=== PATIENT | male | born 1965 | race Caucasian/White ===

== ENCOUNTER → 2020-08-11 04:00 | Outpatient (CLI) | payer BC, SELFPAY ==
[2020-08-11 20:06] LABS: SARS-CoV-2 RNA PCR Negative
== END ==
PROVIDERS: PCP Internal Medicine; Visit Provider Internal Medicine Gastroenterology
DX: Z01.812 Encounter for preprocedural laboratory examination (principal); Z20.822 Contact with and (suspected) exposure to COVID-19
CPT/HCPCS: C9803; U0003; U0005

== ENCOUNTER 2020-08-14 01:58 | Day surgery (SDC) | payer BC, SELFPAY ==
[2020-08-14] MEDS: LACTATED RINGERS 1,000 ML 150 ML IV CONT (11:41)
[2020-08-14 11:48] VITALS: BP 136/89; PULSE 107; RESP 20; TEMP 36.4; O2SAT 97
[2020-08-14 12:05] VITALS: BMI 42.5
--- NOTE | 2020-08-14 12:10 | P.PNAN_ITS ---
Anes - Initial Pre Proc Eval Procedure: Operation Date: 08/14/20 12:30 Proposed Procedures p Screening Colonoscopy - Rom Fuentes MD Date/Time: 08/14/20 12:10 Surgeon: Rom Fuentes MD Pre Op Diagnosis: neoplasm screening Patient Data Age: 54 Gender: M Height: 5 ft 11 in Weight: 138.2 kg Last Vital Signs Temp 97.6 F 08/14/20 11:48 Pulse 107 H 08/14/20 11:48 Resp 20 08/14/20 11:48 BP 136/89 08/14/20 11:48 Pulse Ox 97 08/14/20 11:48 Allergies Allergy/AdvReac Type Severity Reaction Status Date / Time amlodipine Allergy Intermediate Rash Verified 08/14/20 11:43 cephalexin Allergy Intermediate Rash Verified 08/14/20 11:43 Home Medications Medication Instructions Recorded Confirmed Type needle (disp) 20 G 20 gauge x 1 #12 each 05/29/19 08/14/20 Rx 1/2 syringe with needle 3 mL 25 x 5/8 #12 each 05/29/19 08/14/20 Rx hydrochlorothiazide 25 mg tablet 25 mg PO DAILY #90 tablet 01/01/20 08/14/20 Rx blood sugar diagnostic #100 ea 01/07/20 08/14/20 Rx simvastatin 20 mg tablet 20 mg PO DAILY #90 tablet 04/20/20 08/14/20 Rx testosterone cypionate 200 mg/mL 200 mg IM WEEKLY PRN #5 ml 07/14/20 08/14/20 Rx intramuscular oil Patient hx anesthesia problems: none Family hx anesthesia problems: none [facility] Past Medical History Medical History (Updated 08/14/20 @ 12:10 by Adiel Moseley MD) Hyperlipidemia Hypertension MANJULA (obstructive sleep apnea) Social History Social History Smoking status: Current every day smoker Tobacco type: cigarettes Alcohol intake: former Substance use: never Substance use type: does not use Gender identity (if verbalized by the patient): Male Spiritual care concerns: No Anes - Eval Final PreProcedure Day of Procedure 08/14/20 12:10 Patient weight: morbidly obese Heart: regular rate and rhythm Lungs: clear to auscultation Airway: Mallampati scale class II Neurological: alert and oriented Last oral intake: >/= 8 hours ASA classification: III Emergent: no Anesthetic plan: proceed Anesthesia type and monitoring: general GIVS and standard monitoring Informed Consent: The patient's anesthetic plan and its attendant risks and benefits were discussed with the patient/family/POA. Questions were solicited and answers provided to the satisfaction of the patient/family/POA.
--- NOTE | 2020-08-14 12:15 | PM.HPGS ---
History of Present Illness History of Present Illness Consent: Risks, benefits, and alternatives have been discussed and questions answered. Patient agrees to proceed with procedure. Chief complaint: neoplasm screening Narrative: Wild Weinberg is a 54 year old male here for first screening colonoscopy Review of Systems Constitutional: Constitutional: Denies headache(s) and Denies weakness Eyes: Eyes: Denies blurry vision ENT: Reports Normal hearing present, Denies headache(s) and Denies neck pain Cardiovascular: Cardiovascular: Denies chest pain and Denies dyspnea Respiratory: Respiratory: Denies dyspnea Gastrointestinal: Gastrointestinal: Reports no additional gastrointestinal complaints Genitourinary: Genitourinary: Denies dysuria Musculoskeletal: Musculoskeletal: Denies neck pain Integumentary/Breasts: Skin/Breast: Denies dry skin Neurologic: Reports Normal hearing present, Denies headache(s) and Denies weakness Psychiatric: Psychiatric: Denies anxiety Endocrine: Endocrine: Denies change in body appearance Hematologic/Lymphatic: Hematologic/Lymphatic: Denies easy bleeding Allergic/Immunologic: Allergic/Immunologic: Denies urticaria PMF Past Medical History Medical History (Updated 08/14/20 @ 12:15 by Rom Fuentes MD) Colon cancer screening Hyperlipidemia Hypertension MANJULA (obstructive sleep apnea) Social History Social History Smoking status: Current every day smoker Tobacco type: cigarettes Alcohol intake: former Substance use: never Substance use type: does not use Gender identity (if verbalized by the patient): Male Spiritual care concerns: No Meds Home Medications and Allergies Home Medications Medication Instructions Recorded Confirmed Type needle (disp) 20 G 20 gauge x 1 #12 each 05/29/19 08/14/20 Rx 1/2 syringe with needle 3 mL 25 x 5/8 #12 each 05/29/19 08/14/20 Rx hydrochlorothiazide 25 mg tablet 25 mg PO DAILY #90 tablet 01/01/20 08/14/20 Rx blood sugar diagnostic #100 ea 01/07/20 08/14/20 Rx simvastatin 20 mg tablet 20 mg PO DAILY #90 tablet 04/20/20 08/14/20 Rx testosterone cypionate 200 mg/mL 200 mg IM WEEKLY PRN #5 ml 07/14/20 08/14/20 Rx intramuscular oil Allergies Allergy/AdvReac Type Severity Reaction Status Date / Time amlodipine Allergy Intermediate Rash Verified 08/14/20 11:43 cephalexin Allergy Intermediate Rash Verified 08/14/20 11:43 Vital Signs Vital Signs - 24 hr 08/14/20 11:48 Temperature 97.6 F Pulse Rate 107 H Respiratory Rate 20 Blood Pressure 136/89 Pulse Oximetry 97 Exam Const: General: comfortable and no acute distress HENMT: General nose exam: Normal nares present Eyes: General: appearance normal, both eyes and all related structures Neck: Neck: no JVD Resp: Auscultation: clear to auscultation bilaterally Cardio: Rate: regular rate Rhythm: regular rhythm GI: Inspection: non-distended GI Palp: Yes Soft to palpation Skin: General skin exam: normal color Neuro: General: gait normal Speech: normal speech Extrem: General: normal to inspection Psych: Mental Status: mental status grossly normal Assessment and Plan Assessment and plan (1) Colon cancer screening: Code(s): Z12.11 - Encounter for screening for malignant neoplasm of colon Status: Acute Assessment and Plan: colonoscopy
[2020-08-14 12:37] VITALS: BP 123/86; PULSE 105; RESP 21; O2SAT 97
[2020-08-14 12:47] VITALS: BP 132/82; PULSE 98; RESP 20; O2SAT 97
[2020-08-14 12:57] VITALS: BP 124/79; PULSE 97; RESP 20; O2SAT 95
== END 2020-08-14 13:12 | disposition home or self-care (01) ==
PROVIDERS: PCP Internal Medicine; Visit Provider Internal Medicine Gastroenterology
PROC: 0DJD8ZZ Inspection of Lower Intestinal Tract, Via Natural or Artificial Opening Endoscopic (ICD-10-PCS; CPT 45378; principal; 2020-08-14 12:30)
DX: Z12.11 Encounter for screening for malignant neoplasm of colon (principal); D12.2 Benign neoplasm of ascending colon; K63.5 Polyp of colon; K64.8 Other hemorrhoids; I10 Essential (primary) hypertension; E78.5 Hyperlipidemia, unspecified; G47.33 Obstructive sleep apnea (adult) (pediatric); F17.210 Nicotine dependence, cigarettes, uncomplicated; E66.01 Morbid (severe) obesity due to excess calories; Z68.41 Body mass index [BMI] 40.0-44.9, adult
CPT/HCPCS: 45385; 88305; J2001; J2704; J7120

== ENCOUNTER → 2020-09-19 00:03 | Outpatient (CLI) | payer BC, SELFPAY ==
[2020-09-19 16:57] LABS: SARS-CoV-2 RNA PCR Negative
== END ==
PROVIDERS: PCP Internal Medicine; Visit Provider Internal Medicine Gastroenterology
DX: Z01.812 Encounter for preprocedural laboratory examination (principal); Z20.822 Contact with and (suspected) exposure to COVID-19
CPT/HCPCS: C9803; U0003; U0005

== ENCOUNTER 2020-09-22 02:30 | Day surgery (SDC) | payer BC, SELFPAY ==
[2020-09-11 16:03] VITALS: BMI 42.5
[2020-09-22 09:56] VITALS: BP 132/93; PULSE 96; RESP 20; TEMP 36.3; O2SAT 96; BMI 42.4
[2020-09-22] MEDS: LACTATED RINGERS 1,000 ML 150 ML IV CONT (10:07)
--- NOTE | 2020-09-22 10:08 | WPDANESEPPF ---
Anes - Initial Pre Proc Eval Procedure: Operation Date: 09/22/20 12:30 Proposed Procedures p Esophagogastroduodenoscopy - Rom Fuentes MD Date/Time: 09/22/20 10:08 Surgeon: Rom Fuentes MD Pre Op Diagnosis: Dysphagia Patient Data Age: 54 Gender: M Height: 1.8 m Weight: 138 kg Last Vital Signs Temp 97.4 F L 09/22/20 09:56 Pulse 96 09/22/20 09:56 Resp 20 09/22/20 09:56 BP 132/93 H 09/22/20 09:56 Pulse Ox 96 09/22/20 09:56 Allergies Allergy/AdvReac Type Severity Reaction Status Date / Time amlodipine Allergy Intermediate Rash Verified 09/22/20 09:54 cephalexin Allergy Intermediate Rash Verified 09/22/20 09:54 Home Medications Medication Instructions Recorded Confirmed Type needle (disp) 20 G 20 gauge x 1 #12 each 05/29/19 08/27/20 Rx 1/2 syringe with needle 3 mL 25 x 5/8 #12 each 05/29/19 08/27/20 Rx hydrochlorothiazide 25 mg tablet 25 mg PO DAILY #90 tablet 01/01/20 09/22/20 Rx blood sugar diagnostic #100 ea 01/07/20 08/27/20 Rx simvastatin 20 mg tablet 20 mg PO DAILY #90 tablet 04/20/20 09/22/20 Rx testosterone cypionate 200 mg/mL 200 mg IM WEEKLY PRN #5 ml 07/14/20 09/11/20 Rx intramuscular oil omeprazole 40 mg capsule,delayed 40 mg PO DAILY #30 cap 08/27/20 09/22/20 Rx release Patient hx anesthesia problems: none Family hx anesthesia problems: none PMFSH Past Medical History Medical History Colon cancer screening Hyperlipidemia Hypertension MANJULA (obstructive sleep apnea) Social History Social History Smoking status: Former smoker Tobacco type: cigarettes Alcohol intake: former Substance use: never Substance use type: does not use Living arrangements: with family Gender identity (if verbalized by the patient): Male Spiritual care concerns: No Anes - Eval Final PreProcedure Day of Procedure 09/22/20 10:08 Patient weight: morbidly obese Heart: regular rate and rhythm Lungs: clear to auscultation Airway: Mallampati scale class II Neurological: alert and oriented Last oral intake: >/= 8 hours ASA classification: III Emergent: no Anesthetic plan: proceed Anesthesia type and monitoring: general GIVS and standard monitoring Informed Consent: The patient's anesthetic plan and its attendant risks and benefits were discussed with the patient/family/POA. Questions were solicited and answers provided to the satisfaction of the patient/family/POA.
--- NOTE | 2020-09-22 10:18 | PM.HPGS ---
History of Present Illness History of Present Illness Consent: Risks, benefits, and alternatives have been discussed and questions answered. Patient agrees to proceed with procedure. Chief complaint: Dysphagia Narrative: Wild Weinberg is a 54 year old male with intermittent dysphagia, never had egd. Tried ppi but got nauseous and did not help Review of Systems Constitutional: Constitutional: Denies headache(s) and Denies weakness Eyes: Eyes: Denies blurry vision ENT: Reports Normal hearing present, Denies headache(s) and Denies neck pain Cardiovascular: Cardiovascular: Denies chest pain and Denies dyspnea Respiratory: Respiratory: Denies dyspnea Gastrointestinal: Gastrointestinal: Reports no additional gastrointestinal complaints Genitourinary: Genitourinary: Denies dysuria Musculoskeletal: Musculoskeletal: Denies neck pain Integumentary/Breasts: Skin/Breast: Denies dry skin Neurologic: Reports Normal hearing present, Denies headache(s) and Denies weakness Psychiatric: Psychiatric: Denies anxiety Endocrine: Endocrine: Denies change in body appearance Hematologic/Lymphatic: Hematologic/Lymphatic: Denies easy bleeding Allergic/Immunologic: Allergic/Immunologic: Denies urticaria PMFSH Past Medical History Medical History Colon cancer screening Hyperlipidemia Hypertension MANJULA (obstructive sleep apnea) Social History Social History Smoking status: Former smoker Tobacco type: cigarettes Alcohol intake: former Substance use: never Substance use type: does not use Living arrangements: with family Gender identity (if verbalized by the patient): Male Spiritual care concerns: No Meds Home Medications and Allergies Home Medications Medication Instructions Recorded Confirmed Type needle (disp) 20 G 20 gauge x 1 #12 each 05/29/19 08/27/20 Rx 1/2 syringe with needle 3 mL 25 x 5/8 #12 each 05/29/19 08/27/20 Rx hydrochlorothiazide 25 mg tablet 25 mg PO DAILY #90 tablet 01/01/20 09/22/20 Rx blood sugar diagnostic #100 ea 01/07/20 08/27/20 Rx simvastatin 20 mg tablet 20 mg PO DAILY #90 tablet 04/20/20 09/22/20 Rx testosterone cypionate 200 mg/mL 200 mg IM WEEKLY PRN #5 ml 07/14/20 09/11/20 Rx intramuscular oil omeprazole 40 mg capsule,delayed 40 mg PO DAILY #30 cap 08/27/20 09/22/20 Rx release Allergies Allergy/AdvReac Type Severity Reaction Status Date / Time amlodipine Allergy Intermediate Rash Verified 09/22/20 09:54 cephalexin Allergy Intermediate Rash Verified 09/22/20 09:54 Vital Signs Vital Signs - 24 hr 09/22/20 09:56 Temperature 97.4 F L Pulse Rate 96 Respiratory Rate 20 Blood Pressure 132/93 H Pulse Oximetry 96 Exam Const: General: comfortable and no acute distress HENMT: General nose exam: Normal nares present Eyes: General: appearance normal, both eyes and all related structures Neck: Neck: no JVD Resp: Auscultation: clear to auscultation bilaterally Cardio: Rate: regular rate Rhythm: regular rhythm GI: Inspection: non-distended GI Palp: Yes Soft to palpation Skin: General skin exam: normal color Neuro: General: gait normal Speech: normal speech Extrem: General: normal to inspection Psych: Mental Status: mental status grossly normal Assessment and Plan Assessment and plan (1) Dysphagia: Qualifiers: Dysphagia type: esophageal phase Qualified Code(s): R13.10 - Dysphagia, unspecified Code(s): R13.10 - Dysphagia, unspecified Status: Acute Assessment and Plan: egd to assess
[2020-09-22 10:41] VITALS: BP 148/102; PULSE 96; RESP 24; O2SAT 95
[2020-09-22 10:51] VITALS: BP 135/87; PULSE 89; RESP 16; O2SAT 94
[2020-09-22 11:01] VITALS: BP 135/82; PULSE 88; RESP 19; O2SAT 96
== END 2020-09-22 11:43 | disposition home or self-care (01) ==
PROVIDERS: PCP Internal Medicine; Visit Provider Internal Medicine Gastroenterology
PROC: 0DJ08ZZ Inspection of Upper Intestinal Tract, Via Natural or Artificial Opening Endoscopic (ICD-10-PCS; CPT 43235; principal; 2020-09-22 12:30)
DX: C15.5 Malignant neoplasm of lower third of esophagus (principal); R13.10 Dysphagia, unspecified; K29.50 Unspecified chronic gastritis without bleeding; I10 Essential (primary) hypertension; E78.5 Hyperlipidemia, unspecified; G47.33 Obstructive sleep apnea (adult) (pediatric); Z87.891 Personal history of nicotine dependence; E66.01 Morbid (severe) obesity due to excess calories; Z68.41 Body mass index [BMI] 40.0-44.9, adult
CPT/HCPCS: 43239; 88305; 88342; J2704; J7120

== ENCOUNTER 2020-09-25 06:48 | Outpatient (CLI) | payer BC, SELFPAY ==
--- NOTE | ~2020-09-25 | CT_ITS ---
EXAMINATION: CT chest abdomen pelvis w con DATE: 09/25/2020 07:22 INDICATION: Dysphagia. Esophageal mass. TECHNIQUE: Computed tomography (CT) of the chest, abdomen, and pelvis was performed with 100 mL Omnip aque-350 intravenous contrast. Automated exposure control and iterative reconstruction technique were employed. The dose-length product was 2091.74 mGy-cm. COMPARISON: None FINDINGS: CHEST CT: Small calcified nodule at the lingula consistent with old granulomatous disease. No pneumonia, suspic ious pulmonary nodules, pulmonary edema or pleural effusion. Heart size is normal. No pericardial eff usion. Small to moderate-sized sliding-type hiatal hernia. There is eccentric posterior wall thickeni ng at the level of the gastroesophageal junction which likely represents the malignant-appearing mass reported on recent endoscopy dated 09/22/2020. No pathologically enlarged thoracic lymphadenopathy. T here are bridging osteophytes at multiple levels in the spine, consistent with diffuse idiopathic ske letal hyperostosis (DISH). ABDOMEN/PELVIS CT: 1.6 cm hepatic cyst along the gallbladder fossa. Gallbladder, spleen, pancreas, left kidney and bilat eral adrenal glands are normal. 1.8 cm cyst at the lower pole of the right kidney. Bowels are normal. The appendix is not visualized. No pericecal inflammatory change to suggest acute appendicitis. Blad sujit is normal. Small bilateral fat-containing inguinal hernias, left larger than right. No free intra peritoneal gas or fluid. Double mildly enlarged lymph nodes along the gastrohepatic ligament, the lar gest measuring 1.5 cm which are suspicious for metastatic disease. No other pathologically enlarged a bdominal or pelvic lymphadenopathy. Numerous scattered small subtle lucent bone lesions throughout th e spine as well as at the sternum and pelvis. These include one of the larger lesions at the right po sterior iliac spine as well as a small lesion at the anterior left acetabulum which demonstrates daria ical erosion. A few scattered small relatively dense sclerotic bone lesions most likely representing bone islands. IMPRESSION: 1. Small to moderate-sized sliding-type hiatal hernia with eccentric wall thickening at the gastroeso phageal junction which likely represents the reported malignant mass identified at this location on p rior endoscopy. 2. Mild lymphadenopathy along the gastrohepatic ligament suspicious for metastatic disease. 3. Multiple small subtle lucent bone lesions which raises concern for multiple myeloma or metastatic disease. Reviewed, dictated and finalized at location A. IMPRESSION: 1. Small to moderate-sized sliding-type hiatal hernia with eccentric wall thick ening at the gastroesophageal junction which likely represents the reported mal ignant mass identified at this location on prior endoscopy. 2. Mild lymphadenopathy along the gastrohepatic ligament suspicious for metasta tic disease. 3. Multiple small subtle lucent bone lesions which raises concern for multiple myeloma or metastatic disease.
[2020-09-25 07:13] LABS: Estimated Glomerular Filt Rate 53
== END 2020-09-25 06:49 | disposition home or self-care (01) ==
PROVIDERS: PCP Internal Medicine; Visit Provider Internal Medicine Gastroenterology
DX: R13.10 Dysphagia, unspecified (principal); K22.8 Other specified diseases of esophagus; K44.9 Diaphragmatic hernia without obstruction or gangrene; R59.1 Generalized enlarged lymph nodes
CPT/HCPCS: 71260; 74177; Q9967

== ENCOUNTER 2020-10-06 10:11 | Outpatient (CLI) | payer BC, SELFPAY ==
[2020-10-06 10:44] LABS: Basophils Absolute Auto 0.1 K/mm3 (0.0-0.1); Basophils Percent Auto 0.6 % (0.2-1.2); Eosinophils Absolute Auto 0.1 K/mm3 (0-0.3); Eosinophils Percent Auto 1.1 % (0-4.4); Hematocrit 56.6 % (42.0-52.0); Hemoglobin 19.4 g/dL (14.0-18.0); Immature Granulocyte Absolute 0.14 K/mm3 (0.00-0.031); Immature Granulocyte Percent A 1.4 % (0-0.5); Lymphocytes Absolute Auto 1.82 K/mm3 (0.9-3.2); Lymphocytes Percent Auto 18.4 % (18.3-44.2); Mean Corpuscular HGB Conc 34.3 g/dl (32-36); Mean Corpuscular Hemoglobin 29.8 pg (26-34); Mean Corpuscular Volume 86.9 fl (80-100); Mean Platelet Volume 8.5 fl (7.4-10.4); Monocytes Absolute Auto 0.8 K/mm3 (0.1-0.6); Monocytes Percent Auto 7.8 % (2.6-8.5); Neutrophils Percent Auto 70.7 % (45.5-73.1); Platelet Count Result 191 k/mm3 (150-375); Red Blood Count 6.51 M/mm3 (4.6-6.20); Red Cell Distribution Width 12.5 % (11.5-14.5); White Blood Count 9.9 K/mm3 (4.5-10.0)
[2020-10-06 12:39] LABS: Alanine Aminotransferase 37 U/L (4-50); Albumin Level 4.2 g/dL (3.5-5.1); Alkaline Phosphatase 153 U/L (38-126); Anion Gap 10 mmol/L (8-16); Aspartate Amino Transferase 33 U/L (17-59); Bilirubin,Total 1.3 mg/dL (0.2-1.3); Blood Urea Nitrogen 10 mg/dL (9-20); Calcium 9.5 mg/dL (8.4-10.2); Carbon Dioxide 29 mmol/L (22-30); Chloride 100 mmol/L (98-107); Estimated Glomerular Filt Rate > 60; Glucose 99 mg/dL (75-110); Potassium 3.3 mmol/L (3.4-5.0); Sodium 139 mmol/L (137-145)
== END 2020-10-06 10:12 | disposition home or self-care (01) ==
LOC: ANHLAB 10:14
PROVIDERS: PCP Internal Medicine; Visit Provider Internal Medicine Hematology & Oncology
DX: C15.5 Malignant neoplasm of lower third of esophagus (principal)
CPT/HCPCS: 36415; 80053; 85025

== ENCOUNTER 2020-10-09 13:48 | Outpatient (CLI) | payer BC, SELFPAY ==
--- NOTE | ~2020-10-09 | MR_ITS ---
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 TECHNIQUE: Magnetic resonance imaging (MRI) of the brain/brain stem obtained without contrast. Sagit yoel T1, axial diffusion, gradient echo (T2*), T1, T2, FLAIR sequences obtained. Patient was then inj ected with 20 cc intravenous Multihance contrast. Axial and coronal postcontrast T1 weighted sequence s obtained. There is no prior study for comparison. FINDINGS: There are no areas of restricted diffusion to suggest acute infarction. There is no acute hemorrhage seen on the T2*, a hemosiderin sensitive sequence. No intraparenchymal brain mass. The ve ntricles are normal in size. There are no extra-axial collections. Flow voids are seen in the cereb ral arteries on the T2-weighted sequences consistent with their expected patency. The orbits are unr emarkable. Soft tissue is unremarkable. There are no areas of abnormal enhancement on the postcont rast images. IMPRESSION: 1. Unremarkable brain MRI examination. Reviewed, dictated and finalized at location G.
== END 2020-10-09 13:49 | disposition home or self-care (01) ==
LOC: ANHIMG 13:54
PROVIDERS: PCP Internal Medicine; Visit Provider Internal Medicine Hematology & Oncology
DX: C15.5 Malignant neoplasm of lower third of esophagus (principal)
CPT/HCPCS: 70553; A9577

== ENCOUNTER 2020-10-21 00:58 | Day surgery (SDC) | payer BC, SELFPAY ==
[2020-10-19 13:24] VITALS: BMI 41.8
--- NOTE | ~2020-10-21 | XR_ITS ---
EXAMINATION: XR fl guide central line place DATE: 10/21/2020 13:15 INDICATION: Catheter insertion TECHNIQUE: A single AP view of the right chest was obtained during procedure performed by Dr. Madden . Radiologist was not present for the imaging or procedure. The amount of fluoroscopy time used durin g this procedure was 0.9 minutes. COMPARISON: None. FINDINGS: Right internal jugular central venous catheter tip at the caudal superior vena cava. Visual ized portion of the right lung is clear with no pneumothorax or pleural effusion. IMPRESSION: 1. Tip of a right internal jugular central venous catheter in the caudal superior vena cava. Reviewed, dictated and finalized at location A. IMPRESSION: 1. Tip of a right internal jugular central venous catheter in the caudal superi or vena cava.
--- NOTE | ~2020-10-21 | XR_ITS ---
EXAMINATION: XR chest port-a-cath/central EXAM DATE: 10/21/2020 13:47 INDICATION: Portacatheter insertion, postoperative. TECHNIQUE: Portable AP frontal chest x-ray was obtained. There is no prior study for comparison. FINDINGS: There is a right-sided port a catheter, intact line and tip projecting over expected locati on of cavoatrial junction. There is cardiomegaly and pulmonary vascular congestion. No confluent cons olidation or pneumothorax. No sizable pleural effusion. IMPRESSION: 1. Cardiomegaly, congestion. 2. Portacatheter in position. 3. No pneumothorax. Reviewed, dictated and finalized at location B.
[2020-10-21 10:44] VITALS: BP 138/91; PULSE 89; RESP 16; TEMP 36.6; O2SAT 96
[2020-10-21] MEDS: LACTATED RINGERS 1,000 ML 30 ML IV CONT (11:09)
[2020-10-21] MEDS: KETOROLAC 15 MG/ML VIAL (*BKC) IV PUSH (11:11)
--- NOTE | 2020-10-21 11:19 | PM.HPGS ---
History of Present Illness History of Present Illness Consent: Risks, benefits, and alternatives of placement of a Port-A-Cath for chemotherapy have been discussed and questions answered. Patient agrees to proceed with procedure. 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 Tanya toure regarding recently discovered esophageal cancer. Prior to his endoscopic evaluation the patient been having dysphagia for about 2 months. Workup including a CT scan of shown some possible lytic lesions in the bone. He has had a thorough discussion about his plan of treatment with Dr. Jansen and this includes in need for a port to administer chemotherapy. The risks, benefits, possible complications of placing a port including bleeding infection pneumothorax have been described and we will plan to place this on the right through the jugular approach using ultrasound guidance. Review of Systems Constitutional: Constitutional: Reports no additional constitutional complaints, Reports fatigue and Denies malaise Eyes: Eyes: Denies change in vision and Denies loss of vision ENT: Reports Normal hearing present, Denies change in voice, Denies dizziness, Denies hoarseness and Denies sore throat Cardiovascular: Cardiovascular: Denies chest pain, Denies leg edema and Denies dyspnea Respiratory: Respiratory: Denies cough, Denies dyspnea and Denies wheezing Gastrointestinal: Gastrointestinal: Denies hematochezia, Denies change in bowel habits and Denies heartburn Comments: Patient has some dysphagia which led to his EGD. Genitourinary: Genitourinary: Denies urinary frequency and Denies urinary incontinence Musculoskeletal: Comments: complaining of some diffuse musculoskeletal pain. This may be related to his recently discovered bony metastasis. Neurologic: Reports Normal hearing present, Denies confusion, Denies dizziness, Denies loss of vision, Denies memory loss and Denies seizure-like activity Psychiatric: Psychiatric: Denies confusion, Denies depression and Denies memory loss Endocrine: Endocrine: Denies cold intolerance and Reports fatigue Hematologic/Lymphatic: Hematologic/Lymphatic: Denies easy bleeding and Denies easy bruising Allergic/Immunologic: Allergic/Immunologic: Denies wheezing PMFSH Past Medical History Medical History (Updated 10/21/20 @ 11:27 by Miko Madden MD) Colon cancer screening Esophageal mass Hyperlipidemia (Unknown) Hypertension MANJULA (obstructive sleep apnea) Social History Social History Smoking packs per day: 0.5 Smoking cigarettes per day: 10.0 Years smoked: 20 Smoking pack-years: 10.00 Smoking status: Former smoker Tobacco type: cigarettes Alcohol intake: former Substance use: never Substance use type: does not use Last use: 10/08/20 Living arrangements: with family Gender identity (if verbalized by the patient): Male Spiritual care concerns: No Meds Home Medications and Allergies Home Medications Medication Instructions Recorded Confirmed Type needle (disp) 20 G 20 gauge x 1 #12 each 05/29/19 10/19/20 Rx 1/2 syringe with needle 3 mL 25 x 5/8 #12 each 05/29/19 10/19/20 Rx hydrochlorothiazide 25 mg tablet 25 mg PO DAILY #90 tablet 01/01/20 10/21/20 Rx blood sugar diagnostic #100 ea 01/07/20 10/19/20 Rx omeprazole 40 mg capsule,delayed 40 mg PO DAILY #30 cap 08/27/20 10/21/20 Rx release testosterone cypionate 200 mg/mL 200 mg IM WEEKLY PRN #5 ml 09/22/20 10/21/20 Rx intramuscular oil simvastatin 20 mg tablet 20 mg PO DAILY #90 tablet 10/12/20 10/21/20 Rx hydrocodone-acetaminophen 1 tablet PO DAILY PRN 10/19/20 10/21/20 History ondansetron HCl 8 mg PO DAILY 10/19/20 10/21/20 History sucralfate 100 mg/mL oral See Rx Instructions .ROUTE 10/19/20 10/21/20 Rx suspension .COMPLEX #900 ml Allergies Allergy/AdvReac Type Severity Reaction Sta
[2020-10-21 11:26] LABS: INR 0.9; Partial Thromboplastin Time 26.7 SECONDS (22.3-36.8); Prothrombin Time 12.5 Seconds (11.1-14.7)
--- NOTE | 2020-10-21 11:56 | WPDHPUPDATE1 ---
History and Physical Update Update Date/Time: 10/21/20 11:56 History and Physical has been reviewed, including an updated exam of the patient. There are NO changes in the patient's condition. Risks, benefits, and alternatives have been discussed and questions answered. Patient agrees to proceed with procedure.
--- NOTE | 2020-10-21 12:00 | WPDANESEPPF ---
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 Patient Data Age: 54 Gender: M Height: 1.8 m Weight: 134.9 kg Last Vital Signs Temp 36.6 C 10/21/20 10:44 Pulse 89 10/21/20 10:44 Resp 16 10/21/20 10:44 BP 138/91 H 10/21/20 10:44 Pulse Ox 96 10/21/20 10:44 Allergies Allergy/AdvReac Type Severity Reaction Status Date / Time amlodipine Allergy Intermediate Rash Verified 10/21/20 10:53 cephalexin Allergy Intermediate Rash Verified 10/21/20 10:53 Home Medications Medication Instructions Recorded Confirmed Type needle (disp) 20 G 20 gauge x 1 #12 each 05/29/19 10/19/20 Rx 1/2 syringe with needle 3 mL 25 x 5/8 #12 each 05/29/19 10/19/20 Rx hydrochlorothiazide 25 mg tablet 25 mg PO DAILY #90 tablet 01/01/20 10/21/20 Rx blood sugar diagnostic #100 ea 01/07/20 10/19/20 Rx omeprazole 40 mg capsule,delayed 40 mg PO DAILY #30 cap 08/27/20 10/21/20 Rx release testosterone cypionate 200 mg/mL 200 mg IM WEEKLY PRN #5 ml 09/22/20 10/21/20 Rx intramuscular oil simvastatin 20 mg tablet 20 mg PO DAILY #90 tablet 10/12/20 10/21/20 Rx hydrocodone-acetaminophen 1 tablet PO DAILY PRN 10/19/20 10/21/20 History ondansetron HCl 8 mg PO DAILY 10/19/20 10/21/20 History sucralfate 100 mg/mL oral See Rx Instructions .ROUTE 10/19/20 10/21/20 Rx suspension .COMPLEX #900 ml Laboratory Tests 10/21/20 10:46 PT 12.5 Seconds Seconds (11.1-14.7) INR 0.9 APTT 26.7 SECONDS SECONDS (22.3-36.8) Patient hx anesthesia problems: none Family hx anesthesia problems: none PMFSH Past Medical History Medical History Colon cancer screening Esophageal mass Hyperlipidemia (Unknown) Hypertension MANJULA (obstructive sleep apnea) Social History Social History Smoking packs per day: 0.5 Smoking cigarettes per day: 10.0 Years smoked: 20 Smoking pack-years: 10.00 Smoking status: Former smoker Tobacco type: cigarettes Alcohol intake: former Substance use: never Substance use type: does not use Last use: 10/08/20 Living arrangements: with family Gender identity (if verbalized by the patient): Male Spiritual care concerns: No Anes - Eval Final PreProcedure Day of Procedure 10/21/20 12:00 Patient weight: morbidly obese Heart: regular rate and rhythm Lungs: clear to auscultation Airway: Mallampati scale class II Neurological: alert and oriented Last oral intake: >/= 8 hours ASA classification: III Emergent: no Anesthetic plan: proceed Anesthesia type and monitoring: general GIVS and standard monitoring Informed Consent: The patient's anesthetic plan and its attendant risks and benefits were discussed with the patient/family/POA. Questions were solicited and answers provided to the satisfaction of the patient/family/POA.
[2020-10-21] MEDS: ceFAZolin 3 GM/D5W 100 ML 100 ML IVPB (12:22)
[2020-10-21] MEDS: HEPARIN SODIUM 5,000 UNITS/ML VIAL 5000 UNITS IRRIGATION (12:58)
[2020-10-21] MEDS: BUPIVACAINE/EPINEPHRINE 0.5% 30 ML VIAL INFILTRATE (12:59)
[2020-10-21 13:32] VITALS: BP 104/59; PULSE 92; RESP 14; O2SAT 96
--- NOTE | 2020-10-21 13:33 | W.PM.PROC2 ---
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 Description of Procedure Patient was seen and marked in the pre-op area prior to coming to the OR. Patient was brought to the operating room. Patient was placed supine on the operating table and general IV sedation was induced. The nurse leak gang supervisor provided oxygen and IV sedation. Patient's head was carefully turned to the left side while in the supine position and the patient's entire neck and anterior chest on both sides was prepped and draped in the usual sterile fashion. Following this the appropriate time-out was completed confirming procedure and patient. We confirmed that all the needed equipment was present in the room. Following this the ultrasound probe was draped into the field and using the probe we carefully identified the carotid artery and jugular vein on the right neck. We then took a picture of the vascular anatomy of the neck and transferred from the ultrasound to the Lytro chart. I marked the skin directly over the Rt. internal jugular vein. I then used an 11 blade knife to make a small coreen in the skin. Following this, using the continuous ultrasound guidance, a Cook needle was placed through the skin incision and on into this vein. I then was able to draw back good dark blood. Once this was completed a guidewire using a J-tip was advanced through the needle and then the needle and the guidewire cover were withdrawn. C-arm fluoroscopy was used to confirm that the guidewire was nicely in the venous system. Once this was confirmed with the C - arm, I preceded on by making the pocket for the port on the patient's anterior right chest approximately 3 centimeters below the clavicle overlying the chest wall. Local anesthetic was infiltrated into the skin where there was a transverse incision marked out. Incision was made and we made a pocket inferior to the incision with just a little dissection superior. The Smart port was tried in the pocket and seemed to fit well. Following this the catheter which had been placed on a tunneling device was tunneled from the port site on the anterior right chest up to the right neck where the small incision had been made slightly larger with an #11 blade knife. Then the catheter was pulled through so that we would have 15 centimeters to put into the central venous system once the dilation took place. Following this we placed the dilator and sheath over the guidewire in the jugular vein and carefully dilated the tract into the central venous system. The guidewire and dilator were then removed, carefully covering the end of the sheath to prevent air embolus. The end of the catheter which had been removed from the tunneling device and the tip checked was then inserted into the sheath and into the neck. I then carefully pulled the 2 arms of the tear-away sheath away as the head start assistant teacher held the catheter in position with a DeBakey forceps. Following this we checked the position of the catheter with C-arm fluoroscopy confirming that the tip seemed to be in the distal superior vena cava near the junction with the right atrium. I felt that it was in good position and so the rest of the catheter was pulled down toward the feet into the port site. We then measured to the appropriate position to cut the catheter to attach it to the port stem. Then the connector sealing device for the catheter port was placed onto the catheter and then the catheter cut to the appropriate length and inserted onto the stem of the port. Then the connector was advanced onto th
[2020-10-21 14:02] VITALS: BP 104/59; PULSE 90; RESP 16; O2SAT 96
[2020-10-21 14:32] VITALS: BP 123/90; PULSE 68; RESP 16
== END 2020-10-21 14:43 | disposition home or self-care (01) ==
PROVIDERS: PCP Internal Medicine; Visit Provider Surgery
PROC: (CPT 36561; principal; 2020-10-21 12:30)
DX: C15.5 Malignant neoplasm of lower third of esophagus (principal); R13.10 Dysphagia, unspecified; I10 Essential (primary) hypertension; E78.5 Hyperlipidemia, unspecified; G47.33 Obstructive sleep apnea (adult) (pediatric); Z87.891 Personal history of nicotine dependence; E66.01 Morbid (severe) obesity due to excess calories; Z68.41 Body mass index [BMI] 40.0-44.9, adult
CPT/HCPCS: 36561; 36415; 76937; 77001; 85610; 85730; C1788; J0690; J1644; J1885; J2250; J2405; J2704; J3010; J7030; J7120

== ENCOUNTER 2020-10-29 12:47 | Outpatient (CLI) | payer BC, SELFPAY ==
--- NOTE | 2020-10-29 | ECHO_ITS ---
Patient Info Name: Wild Weinberg Age: 54 years : 1965 Gender: Male Ht: 71 in Wt: 290 lbs BSA: 2.62 m2 HR: 78 bpm BP: 136 / 89 mmHg Technical Quality: Fair Exam Date: 10/29/2020 1:00 PM Exam Location: [facility] Patient Status: Outpatient Admit Date: 10/29/2020 Staff Ordering Physician: Frank Jansen MD Communications Representative: DAVE Attending Provider: Frank Jansen MD Referring Physician: Inderjit BROWN; Exam Type: CA echo doppler color flow Study Info Indications 150.5 - CANCER OF DISTAL THIRD ESOPHAGUS C15.5 - CANCER OF DISTAL THIRD ESOPHAGUS Complete two-dimensional, color flow and Doppler transthoracic echocardiogram is performed. Summary 1. Complete two-dimensional, color flow and Doppler transthoracic echocardiogram is performed. 2. Left ventricular chamber dimension is normal. 3. Left ventricular systolic function is normal, estimated at 60-65%. 4. There is mildly increased left ventricular wall thickness. 5. The left ventricular diastolic function is normal. 6. E/e' 8 is minimally elevated. 7. Global longitudinal strain is abnormal at -15.8%. Left Ventricle E/e' 8 is minimally elevated. Global longitudinal strain is abnormal at -15.8%. Left ventricular chamber dimension is normal. Left ventricular systolic function is normal, estimated at 60-65%. There is mildly increased left ventricular wall thickness. The left ventricular diastolic function is normal. Right Ventricle Right ventricular chamber dimension is normal. Right ventricular systolic function is normal. Left Atria Left atrial chamber dimension is normal. Right Atria Right atrial chamber dimension is normal. Aortic Valve The aortic valve is trileaflet. There is no aortic valve stenosis. There is no aortic valve regurgitation. Pulmonic Valve There is no pulmonic regurgitation. Mitral Valve There is no mitral valve stenosis. There is no mitral valve regurgitation. Tricuspid Valve There is no tricuspid valve regurgitation. Pericardium/Pleural There is no pericardial effusion. Inferior Vena Cava Normal inferior vena cava with >50% collapse upon inspiration consistent with normal right atrial pressure, 5 mmHg. Aorta The aortic root size at the sinus of Valsalva is normal. Left Ventricular Outflow Tract Name Value Normal LVOT 2D LVOT Diameter 2.6 cm LVOT Doppler LVOT Peak Gradient 6 mmHg LVOT Mean Gradient 3 mmHg LVOT VTI 23 cm LVOT VTI/AV VTI Ratio 1.0 LVOT Stroke Volume 124 ml LVOT CO 25.5 l/min LVOT CI 9.7 l/min/m2 Mitral Valve Name Value Normal MV Doppler MV Peak Gradient 33 mmHg MV Mean
== END 2020-10-29 12:48 | disposition home or self-care (01) ==
LOC: ANHCARD 12:48
PROVIDERS: PCP Internal Medicine; Visit Provider Internal Medicine Hematology & Oncology
DX: C15.5 Malignant neoplasm of lower third of esophagus (principal)
CPT/HCPCS: 93306

== ENCOUNTER 2021-01-18 12:48 | Outpatient (CLI) | payer BC, SELFPAY ==
--- NOTE | 2021-01-18 | ECHO_ITS ---
Patient Info Name: Wild Weinberg Age: 55 years : 1965 Gender: Male Ht: 71 in Wt: 265 lbs BSA: 2.50 m2 HR: 88 bpm BP: 133 / 96 mmHg Exam Date: 01/18/2021 1:25 PM Exam Location: [facility] Patient Status: Outpatient Admit Date: 01/18/2021 Staff Ordering Physician: Frank Jansen MD Matchbook Assembler: John Posey RDCS, RT Attending Provider: Frank Jansen MD Referring Physician: Inderjit BROWN; Exam Type: CA echo doppler color flow Study Info Indications I50.9 - Heart failure, unspecified Complete two-dimensional, color flow and Doppler transthoracic echocardiogram is performed. Strain analysis performed. Summary 1. Complete two-dimensional, color flow and Doppler transthoracic echocardiogram is performed. 2. Left ventricular chamber dimension is normal. 3. Left ventricular systolic function is normal, estimated at 55-60%. 4. There is mildly increased left ventricular wall thickness. 5. The left ventricular diastolic function is grade I diastolic dysfunction. 6. E/e' 5 is not elevated. 7. Global longitudinal strain is abnormal at -13.4%. Left Ventricle E/e' 5 is not elevated. Global longitudinal strain is abnormal at -13.4%. Left ventricular chamber dimension is normal. Left ventricular systolic function is normal, estimated at 55-60%. There is mildly increased left ventricular wall thickness. The left ventricular diastolic function is grade I diastolic dysfunction. Right Ventricle Right ventricular systolic function is normal and with normal TAPSE 2.0 cm. Right ventricular chamber dimension is normal. Left Atria Left atrial chamber dimension is normal. Right Atria Right atrial chamber dimension is normal. Aortic Valve The aortic valve is trileaflet. There is no aortic valve stenosis. There is no aortic valve regurgitation. Pulmonic Valve There is no pulmonic regurgitation. Mitral Valve There is no mitral valve stenosis. There is no mitral valve regurgitation. Tricuspid Valve There is no tricuspid valve regurgitation. Pericardium/Pleural There is no pericardial effusion. Inferior Vena Cava Normal inferior vena cava with >50% collapse upon inspiration consistent with normal right atrial pressure, 5 mmHg. Aorta The aortic root size at the sinus of Valsalva is normal. Left Ventricular Outflow Tract Name Value Normal LVOT 2D LVOT Diameter 2.0 cm LVOT Doppler LVOT Peak Gradient 4 mmHg LVOT Mean Gradient 2 mmHg LVOT VTI 16 cm LVOT VTI/AV VTI Ratio 0.7 LVOT Stroke Volume 49 ml LVOT CO 4.2 l/min LVOT CI 1.7 l/min/m2 Mitral Valve Name Value Normal MV Doppler MV Decel [place] 289
== END 2021-01-18 12:49 | disposition home or self-care (01) ==
LOC: ANHCARD 12:49
PROVIDERS: PCP Internal Medicine; Visit Provider Internal Medicine Hematology & Oncology
DX: C15.5 Malignant neoplasm of lower third of esophagus (principal)
CPT/HCPCS: 93306

== ENCOUNTER 2021-01-19 10:42 | Outpatient (CLI) | payer BC, SELFPAY ==
--- NOTE | ~2021-01-19 | CT_ITS ---
EXAMINATION: CT chest abdomen pelvis w con EXAM DATE: 01/19/2021 11:16 INDICATION: Cancer of distal third of esophagus. TECHNIQUE: Spiral CT of the chest, abdomen and pelvis was performed following intravenous injection o f 100 mL Omnipaque 350. Axial, coronal and sagittal images chest, abdomen and pelvis were reviewed. Coronal maximum intensity pixel images of chest reviewed. The dose-length product (DLP) for this ex amination was 1873.69 mGy-cm. The exposure was tailored according to patient size (auto mA exposure control), and iterative reconstruction (ASIR) was used as additional dose reduction technique. Compar priyank is made to prior examination from 09/25/2020. FINDINGS: CHEST: There is a right-sided portacatheter. There are no pleural or pericardial effusions. Trach eobronchial tree is patent. There is no mediastinal, hilar or axillary lymphadenopathy. There is no pneumothorax. Heart normal in size. There is mild coronary arterial calcification, arterial sc lerosis. ABDOMEN PELVIS: Small liver cyst adjacent to gallbladder fossa unchanged. The spleen, adrenal glands and pancreas are unremarkable. Gallbladder is unremarkable. No biliary obstruction. Portal and spl enic veins are patent. Kidneys enhance symmetrically. There is no hydronephrosis. The prostate is unremarkable. The bladder is unremarkable. There is upper retroperitoneal lymph node measuring 2.2 x 1.3 cm not significantly changed. There is mild scattered arteriosclerotic disease. Small left in guinal fat-containing hernia. There are no findings to suggest appendicitis. Small sliding gastroesophageal hiatal hernia with mil d thickening of the distal esophageal wall, appearance is stable compared to prior study. There is e xpected amount of colonic stool. No free intraperitoneal gas. Previously described small bone lucencies have significantly progressed compared to prior study, now with mixed sclerotic and lytic appearance involving vertebral bodies, ribs, sternum, manubrium, pelvi s and hips. IMPRESSION: 1. Stable mild distal esophageal wall thickening and upper retroperitoneal lymphadenopathy. 2. Significant progression in extensive osseous metastatic disease. 22 Reviewed, dictated and finalized at location B. IMPRESSION: 1. Stable mild distal esophageal wall thickening and upper retroperitoneal lym phadenopathy. 2. Significant progression in extensive osseous metastatic disease. 22
--- NOTE | ~2021-01-19 | NM_ITS ---
EXAMINATION: NM bone scan whole body DATE: 01/19/2021 15:28 INDICATION: Cancer of distal third of esophagus. TECHNIQUE: 22 mCi Tc-99m HDP was administered intravenously. Delayed whole-body scintigrams were obt ained. COMPARISON: CT chest, abdomen, and pelvis 01/19/21, brain MRI 10/09/20 FINDINGS: There is widespread increased activity in the axial skeleton and proximal appendicular skel eton correlating with widespread lytic and sclerotic lesions by CT, consistent with metastatic diseas e. There are lesions of increased activity in the skull without correlate on the brain MRI from 2020, likely metastatic disease. IMPRESSION: 1. Widespread osseous metastatic disease. Reviewed, dictated and finalized at location A.
== END 2021-01-19 10:43 | disposition home or self-care (01) ==
LOC: ANHIMG 10:46
PROVIDERS: PCP Internal Medicine; Visit Provider Internal Medicine Hematology & Oncology
DX: C15.5 Malignant neoplasm of lower third of esophagus (principal); C79.51 Secondary malignant neoplasm of bone
CPT/HCPCS: 71260; 74177; 78306; A9561; Q9967

== ENCOUNTER 2021-04-12 08:17 | Outpatient (CLI) | payer BC, SELFPAY ==
--- NOTE | ~2021-04-12 | CT_ITS ---
EXAMINATION: CT chest abdomen pelvis w con EXAM DATE: 04/12/2021 08:52 INDICATION: Cancer distal third of esophagus TECHNIQUE: Spiral CT of the chest, abdomen and pelvis was performed following intravenous injection o f 100 mL Omnipaque 350. Axial, coronal and sagittal images chest, abdomen and pelvis were reviewed. Coronal maximum intensity pixel images of chest reviewed. The dose-length product (DLP) for this ex amination was 1425.81 mGy-cm. The exposure was tailored according to patient size (auto mA exposure control), and iterative reconstruction (ASIR) was used as additional dose reduction technique. Compar priyank is made to prior examination from 01/19/2021. FINDINGS: CHEST: There is a right-sided portacatheter. There are no pleural or pericardial effusions. Trach eobronchial tree is patent. There is no mediastinal, hilar or axillary lymphadenopathy. There is no pneumothorax. Heart normal in size. There is mild coronary arterial calcification, arterial sc lerosis. ABDOMEN PELVIS: Small liver cyst adjacent to gallbladder fossa unchanged. The spleen, adrenal glands and pancreas are unremarkable. Gallbladder is unremarkable. No biliary obstruction. Portal and spl enic veins are patent. Kidneys enhance symmetrically. There is no hydronephrosis. The prostate is unremarkable. The bladder is unremarkable. There is upper retroperitoneal lymph node measuring 2.2 x 1.3 cm not significantly changed. There is mild scattered arteriosclerotic disease. Small left in guinal fat-containing hernia. The appendix is not positively visualized. There is no pericecal inflammatory change to suggest appe ndicitis. Small sliding gastroesophageal hiatal hernia with mild thickening of the distal esophagea l wall, appearance is stable compared to prior study. There is expected amount of colonic stool. N o free intraperitoneal gas. Previously described small bone lucencies have continued to progress compared to prior study, with mi xed sclerotic and lytic appearance involving vertebral bodies, ribs, sternum, manubrium, pelvis and h ips. IMPRESSION: 1. Stable mild distal esophageal wall thickening and upper retroperitoneal lymphadenopathy. 2. Continued progression of extensive osseous metastatic disease. Reviewed, dictated and finalized at location G. DOCK OPERATOR IMPRESSION: 1. Stable mild distal esophageal wall thickening and upper retroperitoneal lym phadenopathy. 2. Continued progression of extensive osseous metastatic disease.
== END 2021-04-12 08:18 | disposition home or self-care (01) ==
LOC: ANHIMG 08:21
PROVIDERS: PCP Internal Medicine; Visit Provider Internal Medicine Hematology & Oncology
DX: C15.5 Malignant neoplasm of lower third of esophagus (principal); R59.0 Localized enlarged lymph nodes; C79.51 Secondary malignant neoplasm of bone
CPT/HCPCS: 71260; 74177; Q9967

== ENCOUNTER 2021-04-23 07:13 | Outpatient (CLI) | payer BC, SELFPAY ==
--- NOTE | 2021-04-23 | ECHO_ITS ---
Patient Info Name: Wild Weinberg Age: 55 years : 1965 Gender: Male Ht: 71 in Wt: 242 lbs BSA: 2.38 m2 BP: 148 / 89 mmHg Technical Quality: Fair Exam Date: 04/23/2021 7:41 AM Exam Location: [facility] Patient Status: Outpatient Admit Date: 04/23/2021 Staff Ordering Physician: Frank Jansen MD Data Warehouse Specialist: John Posey RDCS, RT Attending Provider: Frank Jansen MD Referring Physician: Inderjit BROWN; Exam Type: CA echo doppler color flow Study Info Indications C80.1 - Malignant (primary) neoplasm, unspecified Complete two-dimensional, color flow and Doppler transthoracic echocardiogram is performed. Strain analysis performed. Summary 1. Complete two-dimensional, color flow and Doppler transthoracic echocardiogram is performed. 2. Left ventricular systolic function is preserved, estimated at 50-55%. 3. Left ventricular chamber dimension is normal. 4. The left ventricular diastolic function is grade I diastolic dysfunction. 5. E/e' 3 is not elevated. 6. Global longitudinal strain is abnormal at -13.0%. Left Ventricle E/e' 3 is not elevated. Global longitudinal strain is abnormal at -13.0%. Left ventricular systolic function is preserved, estimated at 50-55%. Left ventricular chamber dimension is normal. The left ventricular diastolic function is grade I diastolic dysfunction. Right Ventricle Right ventricular systolic function is normal and with normal TAPSE 2.2 cm. Right ventricular chamber dimension is normal. Left Atria Left atrial chamber dimension is normal. Right Atria Right atrial chamber dimension is normal. Aortic Valve The aortic valve is trileaflet. There is no aortic valve stenosis. There is no aortic valve regurgitation. Pulmonic Valve There is no pulmonic regurgitation. Mitral Valve There is no mitral valve stenosis. There is no mitral valve regurgitation. Tricuspid Valve There is no tricuspid valve regurgitation. Pericardium/Pleural There is no pericardial effusion. Inferior Vena Cava Normal inferior vena cava with >50% collapse upon inspiration consistent with normal right atrial pressure, 5 mmHg. Aorta The aortic root size at the sinus of Valsalva is normal. Left Ventricular Outflow Tract Name Value Normal LVOT 2D LVOT Diameter 2.0 cm LVOT Doppler LVOT Peak Gradient 3 mmHg LVOT Mean Gradient 2 mmHg LVOT VTI 14 cm LVOT VTI/AV VTI Ratio 0.7 LVOT Stroke Volume 45 ml LVOT CO 4.5 l/min LVOT CI 1.9 l/min/m2 Mitral Valve Name Value Normal MV Doppler MV Decel Gaines 206 cm/s2 MV PHT 68 ms MV Area (PHT)
--- NOTE | ~2021-04-23 | NM_ITS ---
EXAMINATION: NM bone scan whole body DATE: 04/23/2021 12:56 INDICATION: Cancer of distal third of esophagus. TECHNIQUE: 25.6 mCi Tc-99m HDP was administered intravenously. Delayed whole-body scintigrams were o btained. COMPARISON: Bone scan 01/19/2021, CT the chest, abdomen, and pelvis 04/12/2021 FINDINGS: There is widespread increased activity in the axial skeleton and proximal appendicular skel eton correlating with widespread lytic and sclerotic lesions by CT, consistent with metastatic diseas e. Activity is visible in the kidneys. IMPRESSION: 1. Widespread osseous metastatic disease, stable from 01/19/2021. Reviewed, dictated and finalized at location A. RVISOR FIREWORKS ASSEMBLY
== END 2021-04-23 07:14 | disposition home or self-care (01) ==
PROVIDERS: PCP Internal Medicine; Visit Provider Internal Medicine Hematology & Oncology
DX: C15.5 Malignant neoplasm of lower third of esophagus (principal); C79.51 Secondary malignant neoplasm of bone; R93.1 Abnormal findings on diagnostic imaging of heart and coronary circulation
CPT/HCPCS: 78306; 93306; A9561

== ENCOUNTER 2021-08-04 08:52 | Outpatient (CLI) | payer BC, SELFPAY ==
--- NOTE | 2021-08-04 | ECHO_ITS ---
Patient Info Name: Wild Weinberg Age: 55 years : 1965 Gender: Male Ht: 71 in Wt: 233 lbs BSA: 2.33 m2 BP: 132 / 75 mmHg Technical Quality: Fair Exam Date: 08/04/2021 11:15 AM Exam Location: [facility] Patient Status: Outpatient Admit Date: 08/04/2021 Staff Ordering Physician: Frank Jansen MD Material Movers: John Posey RDCS, RT Attending Provider: Frank Jansen MD Referring Physician: Inderjit BROWN; Exam Type: CA echo doppler color flow Study Info Indications C80.1 - Malignant (primary) neoplasm, unspecified Complete two-dimensional, color flow and Doppler transthoracic echocardiogram is performed. Summary 1. Complete two-dimensional, color flow and Doppler transthoracic echocardiogram is performed. 2. Left ventricular chamber dimension is mildly enlarged. 3. Left ventricular systolic function is normal, estimated at 55-60%. 4. There is mildly increased left ventricular wall thickness. 5. The left ventricular diastolic function is normal. 6. E/e' 5 is not elevated. 7. There is trace mitral valve regurgitation. 8. Dilated inferior vena cava with >50% collapse upon inspiration consistent with elevated right atrial pressure, 10 mmHg. Left Ventricle E/e' 5 is not elevated. Left ventricular chamber dimension is mildly enlarged. Left ventricular systolic function is normal, estimated at 55-60%. There is mildly increased left ventricular wall thickness. The left ventricular diastolic function is normal. Right Ventricle Right ventricular systolic function is normal and with normal TAPSE 2.1 cm. Right ventricular chamber dimension is normal. Left Atria Left atrial chamber dimension is normal. Right Atria Right atrial chamber dimension is normal. Aortic Valve The aortic valve is trileaflet. There is no aortic valve stenosis. There is no aortic valve regurgitation. Pulmonic Valve There is no pulmonic regurgitation. Mitral Valve There is no mitral valve stenosis. There is trace mitral valve regurgitation. Tricuspid Valve There is no tricuspid valve regurgitation. Pericardium/Pleural There is no pericardial effusion. Inferior Vena Cava Dilated inferior vena cava with >50% collapse upon inspiration consistent with elevated right atrial pressure, 10 mmHg. Aorta The aortic root size at the sinus of Valsalva is normal. Left Ventricular Outflow Tract Name Value Normal LVOT 2D LVOT Diameter 2.1 cm LVOT Doppler LVOT Peak Gradient 2 mmHg LVOT Mean Gradient 1 mmHg LVOT VTI 17 cm LVOT VTI/AV VTI Ratio 0.6 LVOT Stroke Volume 59 ml LVOT CO 4.9 l/min LVOT CI 2.1 l/min/m2 Mitral Valve Name Value Normal MV Doppler
--- NOTE | ~2021-08-04 | CT_ITS ---
EXAMINATION: CT chest abdomen pelvis w con DATE: 08/04/2021 09:30 INDICATION: Cancer distal third of esophagus; restaging TECHNIQUE: Computed tomography (CT) of the chest, abdomen, and pelvis was performed with 100 CC Omnip aque 300 intravenous contrast. Automated exposure control and iterative reconstruction technique were employed. Exam dose: 1448.46 mGy-cm total exam DLP. COMPARISON: 04/12/2021 CTA chest abdomen pelvis FINDINGS: CHEST CT: Right internal jugular Port-A-Cath catheter is again noted, distal tip in right atrium. There is soft tissue thickening in the distal esophagus and the wall of the small sliding hiatal skye ia. Recurrent neoplasm is not excluded. There is interval up to approximately 12.5 mm AP 22 mm with subcarinal lymphadenopathy since 2. Normal heart size. No pericardial effusion. No thoracic aortic aneurysm or dissection. No hilar mass lesion or adenopathy. No pulmonary consolidation or suspicious pulmonary mass lesion. ABDOMEN/PELVIS CT: New approximately 1.9 cm hypoattenuating mass lesion at the anterior aspect of the medial segment of the left hepatic lobe, suspicious for hepatic metastasis since 04/12/2021. Stable approximately 1.7 cm left hepatic cyst near gallbladder and an occasional very small hepatic h ypoattenuating lesion, indeterminate, possibly small cysts, although small metastases are not exclude d The gallbladder is unremarkable. No pancreatic mass lesion, calcification or ductal dilatation. No bile duct dilatation. Normal splenic size. Normal morphology of the adrenal glands.. . There are 2 small nonobstructing lower pole right renal calcifications. 1.5 cm posterior lower pole exophytic right renal cyst. No other renal mass lesion is noted. No urete ral calculus or hydroureteronephrosis. The urinary bladder is unremarkable. There is moderate prostat e enlargement. Very small fat-containing right inguinal hernia, mild fat-containing left inguinal hernia. Very slight fat-containing umbilical hernia. No bowel obstruction, bowel wall thickening, pneumatosis or intraperitoneal free air. Normal caliber of the abdominal aorta. Stable mild upper retroperitoneal lymphadenopathy since 022; otherwise no intraperitoneal or retroperitoneal or pelvic mass lesion or adenopathy or ascites i s noted. 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 IMPRESSION: New subcarinal lymphadenopathy and new approximately 1.9 cm hepatic hypoattenuating lesi on, suspicious for hepatic metastasis, since 04/12/2021 Distal esophageal and small hiatal hernia wall thickening; recurrent malignancy is not excluded. Persistent severe mixed osteolytic and osteosclerotic metastatic disease throughout the axial skeleto n Reviewed, dictated and finalized at [facility]. Reviewed, dictated and finalized at [facility]. IMPRESSION: New subcarinal lymphadenopathy and new approximately 1.9 cm hepati c hypoattenuating lesion, suspicious for hepatic metastasis, since 04/12/2021 Distal esophageal and small hiatal hernia wall thickening; recurrent malignancy is not excluded. Persistent severe mixed osteolytic and osteosclerotic metastatic disease throug hout the axial skeleton
--- NOTE | ~2021-08-04 | NM_ITS ---
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 Delayed whole-body scintigrams were o btained. COMPARISON: Bone scan dated 04/15/[address] dated 08/04/2021 FINDINGS: Again seen is a diffuse slightly heterogeneous increased uptake throughout the bones which correspond s to the widespread lytic and sclerotic pattern throughout the visualized bones of the chest, abdomen and pelvis seen on the prior CT consistent with metastatic disease. Diffuse decreased uptake in the soft tissues including the kidneys secondary to the increased bone uptake. IMPRESSION: 1. Stable appearance of widespread, essentially confluent osseous metastatic disease. Reviewed, dictated and finalized at [facility]. IMPRESSION: 1. Stable appearance of widespread, essentially confluent osseous metastatic di sease.
== END 2021-08-04 08:53 | disposition home or self-care (01) ==
PROVIDERS: PCP Internal Medicine; Visit Provider Internal Medicine Hematology & Oncology
DX: C15.5 Malignant neoplasm of lower third of esophagus (principal); C79.51 Secondary malignant neoplasm of bone; R59.0 Localized enlarged lymph nodes; K76.9 Liver disease, unspecified; K44.9 Diaphragmatic hernia without obstruction or gangrene; R93.1 Abnormal findings on diagnostic imaging of heart and coronary circulation
CPT/HCPCS: 71260; 74177; 78306; 93306; A9561; Q9967

== ENCOUNTER 2021-10-20 07:30 | Outpatient (RCR) | payer BC, SELFPAY ==
[2021-10-14 14:41] VITALS: BMI 28.8
--- NOTE | 2021-10-20 08:03 | PCWOUND ---
WOCN note patient did not show up for his appointment, no call made to cancel or reschedule.
--- NOTE | 2021-11-03 10:22 | PCWOUND ---
WOCN NOTE patient did not show up for appointment
== END 2022-01-03 09:57 | disposition home or self-care (01) ==
LOC: ANHWOC 07:30
PROVIDERS: PCP Internal Medicine; Visit Provider Internal Medicine Hematology & Oncology
DX: S71.101D Unspecified open wound, right thigh, subsequent encounter (principal)
CPT/HCPCS: 99213; A9270; G0463

== ENCOUNTER 2021-10-30 08:10 | Emergency (ER) | payer BC, SELFPAY ==
--- NOTE | ~2021-10-30 | CT_ITS ---
EXAMINATION: CT abdomen pelvis w con DATE: 10/30/2021 10:32 INDICATION: Abdominal tenderness, nausea and vomiting, constipation. Weakness. TECHNIQUE: Computed tomography (CT) of the abdomen and pelvis was performed with 100 CC Omnipaque 350 intravenous contrast. Automated exposure control and iterative reconstruction technique were employe d. Exam dose: 671.35 mGy-cm total exam DLP. COMPARISON: 08/04/2021 CT abdomen pelvis FINDINGS: There is a history of metastatic esophageal cancer. New findings: 4.5 mm left lower lobe pulmonary opacity, 6.7 mm right lower lobe pulmonary nodule. Normal heart size. No pericardial effusion. Minimal right pleural effusion. There is circumferential soft tissue thickening of the distal esophagus, which may represent residual or recurrent neoplasm. Increased size of a mass of the medial segment left hepatic lobe, currently measuring up to 2.1 x 3.6 cm, compared to approximately 1.3 x 2 cm on 08/04/2021. There are multiple new hepatic masses, the la rgest measuring up to 2 cm at the posterolateral hepatic dome. There are extensive new nodular densities of the omentum thumb, particularly on the right, consistent with interval development of omental metastases since 08/04/2021 Normal splenic size. No pancreatic mass lesion, calcification or ductal dilatation. The gallbladder is present. No bile duct dilatation. Normal morphology of the adrenal glands. Focal scarring calcification of the posterior medial lower pole the right kidney. 1.5 cm right renal cyst. Punctate nonobstructing left renal calculus. The urinary bladder is unremarkable. Mild prostate enlargement, osteoblastic calcification. Extensive metastatic disease is again noted throughout the axial skeleton. IMPRESSION: Increased hepatic metastatic disease and new pulmonary nodules since 08/04/2021, new oment al nodular densities consistent with omental metastases, consistent with aggressive advance of metast atic disease since less than 3 months ago. Persistent diffuse axial skeletal metastases Reviewed, dictated and finalized at [facility]. Reviewed, dictated and finalized at [facility]. IMPRESSION: Increased hepatic metastatic disease and new pulmonary nodules sinc e 08/04/2021, new omental nodular densities consistent with omental metastases, consistent with aggressive advance of metastatic disease since less than 3 lindsay hs ago. Persistent diffuse axial skeletal metastases
[2021-10-30 08:11] VITALS: BP 98/69; PULSE 116; RESP 20; TEMP 36.3; O2SAT 100
--- NOTE | 2021-10-30 08:13 | ECG_ITS ---
Measurements Intervals [place] Rate: 117 P: LA: 0 QRS: 28 QRSD: 86 T: 49 QT: 301 QTc: 421 Interpretive Statements SINUS TACHYCARDIA ABNORMAL RHYTHM ECG NO PREVIOUS ECG AVAILABLE FOR COMPARISON Electronically Signed On 10-30-2021 14:47:29 CDT by Markie Elizabeth M.D.
--- NOTE | 2021-10-30 09:09 | ED.NAVMDI ---
HPI - Nausea/Vomiting/Diarrhea General Chief complaint: Nausea/Vomiting/Diarrhea Stated complaint: dizzy,nausea Time Seen by Provider: 10/30/21 08:17 History of Present Illness HPI Narrative: 55-year-old male with history of esophageal and bone cancer being treated presents here with abdominal pain that started early this morning/late at night also endorses several episodes of nausea and vomiting. Endorses some chills but no fevers, no cough, no shortness of pain, he often has abdominal pain this feels worse. Also having constipation. Related Data Home Medications Medication Instructions Recorded Confirmed Carafate 10 ml TID 11/16/20 10/18/21 Klor-Con M20 20 meq DAILY 11/16/20 10/18/21 dexamethasone 2 mg BYMOUTH DAILY 11/16/20 10/18/21 prochlorperazine 10 mg PO DAILY PRN Nausea 11/16/20 10/18/21 zolpidem 5 mg PO HS PRN Insomnia 11/16/20 10/18/21 ondansetron 8 mg disintegrating 8 mg PO Q8H PRN Nausea 02/22/21 10/18/21 tablet morphine 15 mg immediate release 15 mg PO Q8H PRN Pain 03/22/21 10/18/21 tablet duloxetine 30 mg capsule,delayed 40 mg PO DAILY 05/21/21 10/18/21 release (Cymbalta) fentanyl 50 mcg/hr transdermal 1 patch transdermal Q72H 08/16/21 10/18/21 patch dextroamphetamine-amphetamine 20 20 mg PO DAILY 10/14/21 10/18/21 mg tablet (Adderall) pregabalin 75 mg capsule 75 mg PO HS 10/14/21 10/18/21 temazepam 15 mg capsule 15 mg PO HS 10/14/21 10/18/21 Allergies Allergy/AdvReac Type Severity Reaction Status Date / Time amlodipine Allergy Intermediate Rash Verified 10/30/21 09:22 cephalexin Allergy Intermediate Rash Verified 10/30/21 09:22 Review of Systems Review of Systems: CONST: Chills. HEENT: No sore throat C/V: No chest pain RESP: No cough GI: Reports abdominal pain, nausea, vomiting : No dysuria. M/S: No joint pain. SKIN: No rash. NEURO: [No headache or focal numbness or weakness] PSYCH: [No depression] PMFSH Past Medical History Medical History Colon cancer screening Esophageal mass Hyperlipidemia (Unknown) Hypertension MANJULA (obstructive sleep apnea) Family History Family History Mother Uterine cancer Lung cancer Breast cancer Social History Social History Smoking packs per day: 0.5 Smoking cigarettes per day: 10.0 Years smoked: 20 Smoking pack-years: 10.00 Smoking status: Former smoker Tobacco type: cigarettes Alcohol intake: former Substance use: never Substance use type: does not use Last use: 10/08/20 Gender identity (if verbalized by the patient): Male Spiritual care concerns: No Exam Narrative: EXAMINATION OF ORGAN SYSTEMS/BODY AREAS: Constitutional: Vital signs per nursing GENERAL: Appears quite tired and uncomfortable HEAD: Normal with no signs of head trauma. EYES: EOMI, conjunctiva normal ENT: Hearing grossly intact LUNGS: Nonlabored breathing. HEART: [Regular rate and rhythm] ABD: [Soft], [tender to palpation] diffusely EXT: Normal range of motion SKIN: Pale NEURO: [Alert and oriented x 3. No gross focal sensory or strength deficits.] PSYCH: Normal affect Course Vital Signs Vital signs: Vital Signs Temperature 97.3 F L 10/30/21 08:11 Pulse Rate 116 H 10/30/21 08:11 Respiratory Rate 20 10/30/21 08:11 Blood Pressure 98/69 L 10/30/21 08:11 Pulse Oximetry 100 10/30/21 08:11 Oxygen Delivery Room Air 10/30/21 08:11 Temperature 97.3 F L 10/30/21 08:11 Pulse Rate 92 10/30/21 15:54 Respiratory Rate 18 10/30/21 15:54 Blood Pressure 112/62 10/30/21 15:54 Pulse Oximetry 99 10/30/21 15:54 Oxygen Delivery Room Air 10/30/21 08:11 MDM - Nausea/Vomiting/Diarrhea MDM Narrative Medical decision making narrative: 55-year-old male with history of esophageal cancer presents here with abdominal pain, nausea and vomiting, vital signs notable f
[2021-10-30 09:15] LABS: Basophils Absolute Auto 0.1 K/mm3 (0.0-0.1); Basophils Percent Auto 0.6 % (0.2-1.2); Eosinophils Percent Auto 0.4 % (0-4.4); Hematocrit 24.6 % (42.0-52.0); Hemoglobin 7.6 g/dL (14.0-18.0); Immature Granulocyte Absolute 0.92 K/mm3 (0.00-0.031); Immature Granulocyte Percent A 9.5 % (0-0.5); Lymphocytes Absolute Auto 0.93 K/mm3 (0.9-3.2); Lymphocytes Percent Auto 9.6 % (18.3-44.2); Mean Corpuscular HGB Conc 30.9 g/dl (32-36); Mean Corpuscular Hemoglobin 30.5 pg (26-34); Mean Corpuscular Volume 98.8 fl (80-100); Mean Platelet Volume 9.2 fl (7.4-10.4); Monocytes Absolute Auto 0.7 K/mm3 (0.1-0.6); Monocytes Percent Auto 7.3 % (2.6-8.5); Neutrophils Percent Auto 72.6 % (45.5-73.1); Nucleated Red Blood Cells Absolute Auto 0.5 K/mm3 (0.0-0.012); Nucleated Red Blood Cells Perc 4.7 % (0.0-0.2); Platelet Count Result 247 k/mm3 (150-375); Red Blood Count 2.49 M/mm3 (4.6-6.20); Red Cell Distribution Width 20.1 % (11.5-14.5); White Blood Count 9.7 K/mm3 (4.5-10.0)
[2021-10-30] MEDS: METOCLOPRAMIDE HCL INJ 10 MG/2 ML VIAL IV PUSH (09:15)
[2021-10-30] MEDS: SODIUM CHLORIDE 0.9% IV 1,000 ML 999 ML IV CONT (09:15)
[2021-10-30] MEDS: LACTATED RINGERS 1,000 ML 999 ML IV CONT ×3 (09:16→14:43)
[2021-10-30] MEDS: fentaNYL CITRATE INJ (*CRX) 100 MCG/2 ML VIAL 50 MCG IV PUSH (09:30)
[2021-10-30 09:31] LABS: Albumin Level 3.2 g/dL (3.5-5.1); Alkaline Phosphatase 138 U/L (38-126); Anion Gap 12 mmol/L (8-16); Aspartate Amino Transferase 37 U/L (17-59); Bilirubin,Total 0.5 mg/dL (0.2-1.3); Blood Urea Nitrogen 40 mg/dL (9-20); Calcium 8.3 mg/dL (8.4-10.2); Carbon Dioxide 21 mmol/L (22-30); Chloride 104 mmol/L (98-107); Estimated CRCL calculation 58 ml/min; Estimated Glomerular Filt Rate 53; Glucose 145 mg/dL (65-110); Lipase 47 U/L (23-300); Potassium 4.9 mmol/L (3.4-5.0); Sodium 137 mmol/L (137-145)
[2021-10-30 09:32] LABS: Alanine Aminotransferase 31 U/L (6-50)
[2021-10-30 09:35] VITALS: BP 97/67; PULSE 101; RESP 16; O2SAT 98
[2021-10-30 09:53] LABS: Anisocytosis 1+ (NORMAL); Hypochromasia 1+ (NORMAL); Platelet Estimate Adequate (Adequate)
[2021-10-30 09:54] LABS: Ovalocytes 1+ (NORMAL)
[2021-10-30 11:10] LABS: SARS-CoV-2 RNA PCR Negative
[2021-10-30] MEDS: HYDROmorphone HCL INJ (*CRX) 1 MG/ML SYR IV PUSH ×2 (11:27→14:46)
--- NOTE | 2021-10-30 11:48 | PC.NURSE ---
asked pt to urinate many times, pt not able to urinate at this time.
[2021-10-30 12:16] VITALS: BP 112/69; BP 116/66; BP 94/67; PULSE 109; PULSE 122; PULSE 146
[2021-10-30 12:37] LABS: Appearance Urine Clear (Clear); Bilirubin Urine Negative (Negative); Blood Urine Negative (Negative); Color Urine Yellow (Yellow); Glucose Urine UA Negative (Negative); Ketones Urine 1+ mg/dL (Negative); Leukocyte Esterase Ur Negative LEU/UL (Negative); Nitrate Urine Negative (Negative); Protein Urine Negative (Negative); Urobilinogen Urine 0.2 mg/dL (<2.0); pH Urine 5.5 (5.0-9.0)
[2021-10-30 12:38] LABS: Mucus Urine Few /lpf; RBC Urine 0-2 /hpf (0-2); Squamous Epithelial Cell Urine Rare /hpf (Few); WBC Urine 0-3 /hpf
[2021-10-30 12:48] LABS: Add Urine Microscopic? YES
[2021-10-30 12:50] LABS: Reflex Lactic Acid Yes or No Add Lactic
[2021-10-30 13:24] LABS: Lactic Acid 4.6 mmol/L (0.7-2.0)
[2021-10-30] MEDS: HYDROcodone/acetaminophen (*CRX) 10-325 MG TABLET 1 TAB PO (14:11)
[2021-10-30 14:13] VITALS: BP 118/76; PULSE 120; RESP 22; O2SAT 95
[2021-10-30 15:12] VITALS: BP 110/70; PULSE 92; RESP 18; O2SAT 98
[2021-10-30 15:54] VITALS: BP 112/62; PULSE 92; RESP 18; O2SAT 99
== END 2021-10-30 15:55 | disposition home or self-care (01) ==
PROVIDERS: Emergency Provider Emergency Medicine; PCP Family Medicine
DX: R11.2 Nausea with vomiting, unspecified (principal); C15.9 Malignant neoplasm of esophagus, unspecified; C79.51 Secondary malignant neoplasm of bone; Z20.822 Contact with and (suspected) exposure to COVID-19; E78.5 Hyperlipidemia, unspecified; I10 Essential (primary) hypertension; G47.33 Obstructive sleep apnea (adult) (pediatric); Z87.891 Personal history of nicotine dependence
CPT/HCPCS: 36415; 74177; 80053; 81001; 83605; 83690; 85025; 87040; 93005; 96361; 96374; 96375; 96376; 99284; A9270; C9803; J1170; J2765; J3010; J7030; J7120; Q9967; U0003; U0005